=== PATIENT | male | born 1945 | race Two or more races ===

== ENCOUNTER 2016-11-19 09:41 | Inpatient (IN) | payer MEDICARE ==
[2016-11-19] VITALS (10 sets, daily range): BP systolic 99–129; BP diastolic 41–76
[~2016-11-19] VITALS: Ht 177.8 cm; Wt 93.4 kg
[2016-11-19] MEDS ORDERED: SODIUM CHLORIDE FLUSH 10ML SYR IVF ONE (10:30)
[2016-11-19] MEDS ORDERED: SODIUM CHLORIDE 0.9% 1,000ML IVBOLUS ONE (10:30)
[2016-11-19] MEDS ORDERED: SIMV20TA3 PO (10:42)
[2016-11-19] MEDS ORDERED: LOSA100T6 PO (10:42)
[2016-11-19] MEDS ORDERED: AMLO5TAB2 PO (10:42)
[2016-11-19] MEDS ORDERED: FERR140T2 PO (10:42)
[2016-11-19 11:02] LABS: WHITE BLOOD COUNT 7.3 x10^3/uL (3.4-10)
[2016-11-19 11:04] LABS: HEMATOCRIT 19.7 % (39.2-51.8); HEMOGLOBIN 6.3 g/dL (13.7-18.0)
[2016-11-19 11:10] LABS: ASPARTATE AMINO TRANSFERASE 7 U/L (15-37); BLOOD UREA NITROGEN 25 mg/dL (7-18)
[2016-11-19 11:32] LABS: ANISOCYTOSIS 1+; MICROCYTOSIS 1+; OVALOCYTES 1+; POIKILOCYTOSIS 1+; POLYCHROMASIA 1+
[2016-11-19 11:34] LABS: HYPOCHROMIA 1+; SCHISTOCYTES 1+
[2016-11-19 11:35] LABS: LARGE PLATELETS 1+
[2016-11-19] MEDS ORDERED: GOLYTELY 4,000ML ORAL.SOL PO ONE (12:30)
[2016-11-19] MEDS ORDERED: ONDANSETRON 2MG/ML, 2ML IVPush PRN (13:30)
[2016-11-19] MEDS ORDERED: ONDANSETRON ODT 4 MG PO PRN (13:30)
[2016-11-19 18:16] LABS: HEMATOCRIT 25.4 % (39.2-51.8); HEMOGLOBIN 8.3 g/dL (13.7-18.0)
[2016-11-19] MEDS: SODIUM CHLORIDE 0.9% 1,000 ML IV SCH (20:15)
[2016-11-19] MEDS ORDERED: DIPHENHYDRAMINE 50 MG/ML, 1ML IVPush ONE (20:30)
[2016-11-19] MEDS ORDERED: ACETAMINOPHEN 325 MG TABLET PO ONE (20:30)
[2016-11-19] MEDS: SIMVASTATIN 20 MG TABLET PO SCH (20:52)
[2016-11-19] MEDS ORDERED: OMNIPAQUE 350 MG/ML, 100ML BOTTLE ONE (22:37)
[2016-11-20] VITALS (9 sets, daily range): BP systolic 112–147; BP diastolic 55–91
[2016-11-20 05:01] LABS: HEMATOCRIT 28.9 % (39.2-51.8); HEMOGLOBIN 9.4 g/dL (13.7-18.0); WHITE BLOOD COUNT 10.6 x10^3/uL (3.4-10)
[2016-11-20 05:25] LABS: ASPARTATE AMINO TRANSFERASE 17 U/L (15-37); BLOOD UREA NITROGEN 18 mg/dL (7-18)
[2016-11-20] MEDS: FERROUS SULFATE 325 MG TABLET PO SCH (08:59)
[2016-11-20] MEDS ORDERED: FENTANYL PF 100 MCG/2ML ONE (09:14)
[2016-11-20] MEDS ORDERED: MIDAZOLAM 1 MG/ML, 5ML ONE (09:15)
[2016-11-20 11:58] LABS: HEMOGLOBIN 8.3 g/dL (13.7-18.0)
[2016-11-20 15:07] LABS: HEMATOCRIT 23.3 % (39.2-51.8); HEMOGLOBIN 7.6 g/dL (13.7-18.0)
[2016-11-20] MEDS ORDERED: OMNIPAQUE 350 MG/ML, 100ML BOTTLE ONE (15:38)
[2016-11-20 22:01] LABS: HEMATOCRIT 20.5 % (39.2-51.8); HEMOGLOBIN 6.7 g/dL (13.7-18.0)
[2016-11-20] MEDS: SODIUM CHLORIDE 0.9% 1,000 ML IV SCH (22:08)
[2016-11-20] MEDS: SIMVASTATIN 20 MG TABLET PO SCH (22:08)
[2016-11-21] VITALS (10 sets, daily range): BP systolic 111–127; BP diastolic 59–73
[2016-11-21 06:55] LABS: HEMATOCRIT 26.8 % (39.2-51.8); HEMOGLOBIN 8.8 g/dL (13.7-18.0); WHITE BLOOD COUNT 8.1 x10^3/uL (3.4-10)
[2016-11-21 07:02] LABS: ASPARTATE AMINO TRANSFERASE 13 U/L (15-37); BLOOD UREA NITROGEN 10 mg/dL (7-18)
[2016-11-21] MEDS: FERROUS SULFATE 325 MG TABLET PO SCH (08:20)
[2016-11-21] MEDS: SODIUM CHLORIDE 0.9% 1,000 ML IV SCH ×2 (08:20→23:18)
[2016-11-21 13:08] LABS: HEMATOCRIT 27.3 % (39.2-51.8); HEMOGLOBIN 9.1 g/dL (13.7-18.0)
[2016-11-21] MEDS: SIMVASTATIN 20 MG TABLET PO SCH ×2 (21:09→21:44)
[2016-11-22 02:46] VITALS: BP 134/74
[2016-11-22 06:29] LABS: HEMATOCRIT 28.1 % (39.2-51.8); HEMOGLOBIN 9.1 g/dL (13.7-18.0); WHITE BLOOD COUNT 6.2 x10^3/uL (3.4-10)
[2016-11-22 06:46] LABS: BLOOD UREA NITROGEN 4 mg/dL (7-18)
[2016-11-22 07:21] LABS: DIFF TOTAL CELLS COUNTED 100 CELL DIFF
[2016-11-22 07:45] VITALS: BP 124/65
[2016-11-22] MEDS: FERROUS SULFATE 325 MG TABLET PO SCH (08:08)
[2016-11-22] MEDS: SODIUM CHLORIDE 0.9% 1,000 ML IV SCH (08:09)
[2016-11-22 08:42] LABS: ANISOCYTOSIS 1+; HOWELL-JOLLY BODIES 1+; MICROCYTOSIS 1+; POLYCHROMASIA 2+; VERIFY COUNTS? YES
[2016-11-22 12:52] VITALS: BP 122/73
[2016-11-22 20:43] VITALS: BP 127/75
[2016-11-22] MEDS: SIMVASTATIN 20 MG TABLET PO SCH (21:00)
[2016-11-23 02:32] VITALS: BP 128/67
[2016-11-23 05:25] LABS: HEMATOCRIT 30.5 % (39.2-51.8); HEMOGLOBIN 9.8 g/dL (13.7-18.0)
[2016-11-23 08:40] VITALS: BP 129/61
[2016-11-23] MEDS: FERROUS SULFATE 325 MG TABLET PO SCH (08:44)
== END 2016-11-23 12:45 | disposition home health service (06) | DRG 378 ==
LOC: ED 11:56 → EDIP 11:57 → ED 12:15 → 4WST 13:32 → DCLOUNGE 11-23 12:10
PROVIDERS: ADMIT Internal Medicine; ATTEND Internal Medicine
PROC: 30233N1 Transfusion of Nonautologous Red Blood Cells into Peripheral Vein, Percutaneous Approach (ICD-10-PCS; 2016-11-19)
PROC: 30233N1 Transfusion of Nonautologous Red Blood Cells into Peripheral Vein, Percutaneous Approach (ICD-10-PCS; 2016-11-20)
PROC: 0DJD8ZZ Inspection of Lower Intestinal Tract, Via Natural or Artificial Opening Endoscopic (ICD-10-PCS; principal; 2016-11-20 08:30)
PROC: 30233N1 Transfusion of Nonautologous Red Blood Cells into Peripheral Vein, Percutaneous Approach (ICD-10-PCS; 2016-11-21)
DX: K57.31 Diverticulosis of large intestine without perforation or abscess with bleeding (principal); E44.1 Mild protein-calorie malnutrition; I10 Essential (primary) hypertension; E78.5 Hyperlipidemia, unspecified; D50.9 Iron deficiency anemia, unspecified; F17.210 Nicotine dependence, cigarettes, uncomplicated; D72.829 Elevated white blood cell count, unspecified; Y92.009 Unspecified place in unspecified non-institutional (private) residence as the place of occurrence of the external cause; W19.XXXA Unspecified fall, initial encounter; Z79.82 Long term (current) use of aspirin; Z82.3 Family history of stroke; Z83.3 Family history of diabetes mellitus; Z85.46 Personal history of malignant neoplasm of prostate; Z92.3 Personal history of irradiation; Z90.79 Acquired absence of other genital organ(s); Z79.899 Other long term (current) drug therapy; Z68.29 Body mass index [BMI] 29.0-29.9, adult
CPT/HCPCS: 36415; 36430; 74174; 74177; 78278; 80048; 80053; 83036; 83605; 85014; 85018; 85025; 85610; 86078; 86850; 86870; 86900; 86922; 86923; 87040; 93005; 96360; 99152; 99153; J2250; J3010; Q9967; A9560; C9898; J1200; J7030; P9016